=== PATIENT | male | born 1970 | race Two or more races ===

== ENCOUNTER 2017-09-29 18:39 | Emergency (ER) | payer SELFPAY ==
[~2017-09-29] VITALS: Ht 175.3 cm; Wt 79.4 kg
[2017-09-29] MEDS ORDERED: Tetanus/Diptheria/Pertussis Vaccine 0.5ml Syr IM ONE (19:15)
[2017-09-29] MEDS ORDERED: Morphine Sulfate 4mg/ml Inj IVP ONE (19:15)
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
[2017-09-29] MEDS ORDERED: Morphine Sulfate 4mg/ml Inj IM ONE (19:30)
[2017-09-29 19:34] LABS: APPEARANCE,URINE CLEAR; BILIRUBIN, URINE NEGATIVE (NEGATIVE); COLOR,URINE AMBER; GLUCOSE, URINE (UA) NEGATIVE (NEGATIVE); KETONES,URINE 1+ (NEGATIVE); LEUKOCYTE ESTERASE ,URINE NEGATIVE (NEGATIVE); NITRITE,URINE NEGATIVE (NEGATIVE); PH,URINE 5 (4.5-8.0); PROTEIN,URINE 2+ (NEGATIVE); UROBILINOGEN,URINE NORMAL MG/DL (0.0-1.0)
[2017-09-29] MEDS ORDERED: SILVER SULFADIA50 GM TP (19:34)
[2017-09-29] MEDS ORDERED: PERCOCET 5-3251 EACH ORAL (19:34)
[2017-09-29 19:40] VITALS: BP 142/92
[2017-09-29 20:00] VITALS: BP 142/92
== END 2017-09-29 20:00 | disposition home or self-care (01) ==
LOC: EMR 19:28
DX: T22.012A Burn of unspecified degree of left forearm, initial encounter (principal); T22.011A Burn of unspecified degree of right forearm, initial encounter; T23.002A Burn of unspecified degree of left hand, unspecified site, initial encounter; T21.02XA Burn of unspecified degree of abdominal wall, initial encounter; T20.00XA Burn of unspecified degree of head, face, and neck, unspecified site, initial encounter; T31.0 Burns involving less than 10% of body surface; X08.8XXA Exposure to other specified smoke, fire and flames, initial encounter; Y92.9 Unspecified place or not applicable; Z23 Encounter for immunization
CPT/HCPCS: 80307; 81003; 90471; 90715; 96372; 99284; J2270; J2405